=== PATIENT | female | born 1965 | race Caucasian/White ===

== ENCOUNTER → 2024-09-29 | Outpatient (REF) | payer OTHER ==
[~2024-09-29] MED LIST: IOPAMIDOL 370 MG/ML 100 ML INFUS..BTL INJ ONE
[2024-09-29 15:33] LABS: CREATININE, SERUM 0.63 mg/dL (0.57-1.11)
== END ==
LOC: CT 14:57
PROVIDERS: ATTEND Family Medicine
DX: R19.00 Intra-abdominal and pelvic swelling, mass and lump, unspecified site (principal)
CPT/HCPCS: 36415; 74177; 82565; 84520; Q9967